=== PATIENT | male | born 1935 | race Caucasian/White ===

== ENCOUNTER 2022-05-05 13:54 | Outpatient (CLI) | payer MEDICARE ==
[~2022-05-05 13:54] MED LIST: Magnevist 469MG/ML 20 ML VIAL ONE
== END 2022-05-05 13:55 | disposition home or self-care (01) ==
LOC: CSHMRI 13:54
PROVIDERS: ATTEND Family Medicine
DX: M54.50 Low back pain, unspecified (principal); G89.29 Other chronic pain; G47.62 Sleep related leg cramps; R20.0 Anesthesia of skin; I71.43 Infrarenal abdominal aortic aneurysm, without rupture; M43.17 Spondylolisthesis, lumbosacral region; M47.817 Spondylosis without myelopathy or radiculopathy, lumbosacral region; M48.061 Spinal stenosis, lumbar region without neurogenic claudication; M48.07 Spinal stenosis, lumbosacral region; M51.36 Other intervertebral disc degeneration, lumbar region
CPT/HCPCS: 72158; 82565

== ENCOUNTER → 2023-07-21 | Day surgery (SDC) | payer MEDICARE, OTHER ==
[2023-07-21 11:31] LABS: BUN (Urea Nitrogen) 25 mg/dL (8.4-25.7); Calc. Creatinine Clearance 0 mL/min (70-130); Calcium 9.5 mg/dL (7.8-10.44); Carbon Dioxide 26 mmol/L (23-31); Estimated GFR 63; Glucose 133 mg/dL (83-110)
[2023-07-21 11:38] LABS: Chloride 107 mmol/L (98-107); Potassium 4.5 mmol/L (3.5-5.1); Sodium 142 mmol/L (136-145)
[2023-07-21 11:44] VITALS: BP 181/79; TEMP 97.8
[2023-07-21 11:48] LABS: Anion Gap 14 mmol/L (10-20)
== END ==
LOC: CSHSDC 10:29
PROVIDERS: ATTEND Specialist
PROC: 5A2204Z Restoration of Cardiac Rhythm, Single (ICD-10-PCS; principal; 2023-07-21)
DX: I48.4 Atypical atrial flutter (principal); I48.11 Longstanding persistent atrial fibrillation; E78.2 Mixed hyperlipidemia; I10 Essential (primary) hypertension; I35.0 Nonrheumatic aortic (valve) stenosis; I65.23 Occlusion and stenosis of bilateral carotid arteries; I71.40 Abdominal aortic aneurysm, without rupture, unspecified; Z79.01 Long term (current) use of anticoagulants; Z90.49 Acquired absence of other specified parts of digestive tract; Z98.890 Other specified postprocedural states; Z96.619 Presence of unspecified artificial shoulder joint; Z87.891 Personal history of nicotine dependence
CPT/HCPCS: 80048; 92960; 93005; 93010